=== PATIENT | male | born 1990 | race Caucasian/White ===

== ENCOUNTER 2021-03-01 13:50 | Emergency (ER) | payer MEDICAID, OTHER ==
[~2021-03-01] VITALS: Ht 182.9 cm; Wt 140.9 kg
[2021-03-01 13:53] VITALS: BP 124/83
[2021-03-01] MEDS ORDERED: CARB15DR65 RIGHT EAR (14:56)
[2021-03-01] MEDS ORDERED: AMOX-422 PO (14:56)
== END 2021-03-01 15:04 | disposition home or self-care (01) ==
LOC: ER 13:50
DX: H66.91 Otitis media, unspecified, right ear (principal); H61.21 Impacted cerumen, right ear; F12.10 Cannabis abuse, uncomplicated
CPT/HCPCS: 99283

== ENCOUNTER 2021-04-02 07:24 | Emergency (ER) | payer MEDICAID ==
[~2021-04-02] VITALS: Ht 182.9 cm; Wt 136.5 kg
[~2021-04-02 07:24] MED LIST: CARB15DR65 RIGHT EAR
[2021-04-02 09:30] VITALS: BP 115/86
== END 2021-04-02 09:31 | disposition home or self-care (01) ==
LOC: ER 07:24
DX: H92.01 Otalgia, right ear (principal); L60.0 Ingrowing nail; F12.90 Cannabis use, unspecified, uncomplicated; Z72.89 Other problems related to lifestyle; Z79.899 Other long term (current) drug therapy
CPT/HCPCS: 11730; 64450; 99284

== ENCOUNTER 2021-08-09 20:14 | Emergency (ER) | payer MEDICAID ==
[~2021-08-09] VITALS: Ht 182.9 cm; Wt 136.4 kg
[2021-08-09 22:05] VITALS: BP 131/84
[2021-08-09] MEDS ORDERED: LIDOcaine Viscous 15ml cup MM STA (22:18)
[2021-08-09] MEDS ORDERED: PENICILLIN G BENZATHINE 2,400,000 UNIT/4 ML SYRINGE IM ONE (22:20)
[2021-08-09] MEDS ORDERED: penicillin G benzathine 1.2 million unit/2ml syringe IM ONE (22:20)
[2021-08-09] MEDS ORDERED: LIDO20SO16 PO (22:30)
== END 2021-08-09 22:53 | disposition home or self-care (01) ==
LOC: ER 20:15
DX: J02.0 Streptococcal pharyngitis (principal); R07.0 Pain in throat; F12.90 Cannabis use, unspecified, uncomplicated; Z72.89 Other problems related to lifestyle; Z79.899 Other long term (current) drug therapy
CPT/HCPCS: 87880; 96372; 99283; J0561

== ENCOUNTER 2021-10-17 16:28 | Emergency (ER) | payer MEDICAID ==
[~2021-10-17] VITALS: Ht 182.9 cm; Wt 136.4 kg
[~2021-10-17 16:28] MED LIST changes: +LIDO20SO16 PO
[2021-10-17 16:43] VITALS: BP 117/79
== END 2021-10-17 18:33 | disposition home or self-care (01) ==
LOC: ER 16:29
DX: M25.572 Pain in left ankle and joints of left foot (principal); M79.672 Pain in left foot; X50.0XXA Overexertion from strenuous movement or load, initial encounter; Y93.89 Activity, other specified; Y92.89 Other specified places as the place of occurrence of the external cause; Y99.8 Other external cause status; F12.10 Cannabis abuse, uncomplicated; Z79.899 Other long term (current) drug therapy
CPT/HCPCS: 73610; 73630; 99284

== ENCOUNTER 2022-04-16 15:14 | Emergency (ER) | payer MEDICAID ==
[~2022-04-16] VITALS: Ht 182.9 cm; Wt 130.0 kg
[2022-04-16 15:18] VITALS: BP 116/74
[2022-04-16] MEDS ORDERED: ondansetron 4mg rapidly disintigrating tab PO ONE (16:00)
[2022-04-16] MEDS ORDERED: HYDROcodone/acetaminophen 10/325mg tab PO ONE (16:00)
[2022-04-16] MEDS ORDERED: ketorolac tromethamine 15mg/ml inj. IM ONE (16:00)
[2022-04-16] MEDS ORDERED: IBUP-1984 PO (16:49)
== END 2022-04-16 17:12 | disposition home or self-care (01) ==
LOC: ER 15:15
DX: S86.911A Strain of unspecified muscle(s) and tendon(s) at lower leg level, right leg, initial encounter (principal); X50.1XXA Overexertion from prolonged static or awkward postures, initial encounter; Y93.89 Activity, other specified; Y92.89 Other specified places as the place of occurrence of the external cause; Y99.8 Other external cause status
CPT/HCPCS: 29505; 73564; 96372; 99283; J1885

== ENCOUNTER 2022-05-03 06:59 | Emergency (ER) | payer MEDICAID ==
[~2022-05-03] VITALS: Ht 182.9 cm; Wt 131.8 kg
[2022-05-03] MEDS ORDERED: triamcinolone acetonide 40mg/ml inj IM ONE (07:35)
[2022-05-03] MEDS ORDERED: dexamethasone 4mg/ml inj IM ONE (07:35)
[2022-05-03 08:40] VITALS: BP 143/88
== END 2022-05-03 08:42 | disposition home or self-care (01) ==
LOC: ER 07:00
DX: R21 Rash and other nonspecific skin eruption (principal); R22.0 Localized swelling, mass and lump, head; F12.10 Cannabis abuse, uncomplicated; Z79.899 Other long term (current) drug therapy
CPT/HCPCS: 96372; 99284; J1100; J3301

== ENCOUNTER 2023-10-03 11:31 | Emergency (ER) | payer MEDICAID ==
[~2023-10-03] VITALS: Ht 182.9 cm; Wt 134.1 kg
[2023-10-03 11:35] VITALS: BP 134/78; PULSE 107; RESP 16; TEMP 98; O2SAT 96
[2023-10-03] MEDS: LIDOcaine 1% W/epiNEPHrine 1:100,000 20ml vial IJ ONE (14:31)
[2023-10-03] MEDS ORDERED: CEPH-585 PO (15:35)
== END 2023-10-03 15:45 | disposition home or self-care (01) ==
LOC: ER 11:31
DX: S01.111A Laceration without foreign body of right eyelid and periocular area, initial encounter (principal); F17.200 Nicotine dependence, unspecified, uncomplicated; F12.90 Cannabis use, unspecified, uncomplicated; Z79.899 Other long term (current) drug therapy; Z72.89 Other problems related to lifestyle; F32.A Depression, unspecified; W18.39XA Other fall on same level, initial encounter; Y93.89 Activity, other specified; Y92.89 Other specified places as the place of occurrence of the external cause; Y99.8 Other external cause status
CPT/HCPCS: 12011; 99284; A6449